=== PATIENT | male | born 1995 | race Caucasian/White ===

== ENCOUNTER 2016-05-25 17:59 | Emergency (ER) | payer MEDICAID, OTHER ==
[~2016-05-25] VITALS: Ht 175.3 cm; Wt 70.0 kg
[2016-05-25] MEDS ORDERED: KETOROLAC 60MG/2ML VIAL IM ONE (22:00)
[2016-05-25 22:38] LABS: BASOPHILS % 0.4 % (0.0-2.0); HEMATOCRIT. 41.3 % (42.0-52.0); HEMOGLOBIN. 14.2 g/dL (14.0-18.0); LYMPHOCYTES % 9.6 % (20.0-50.0); MEAN CORPUSCULAR HEMOGLOBIN 29.5 pg (28.0-32.0); MEAN CORPUSCULAR HGB CONC 34.3 g/dL (31.0-37.0); MEAN CORPUSCULAR VOLUME 86.2 fL (80.0-94.0); MEAN PLATELET VOLUME 7.4 fl (7.4-10.4); MONOCYTES % 11.6 % (2.0-8.0); NEUTROPHILS % 78.4 % (40.0-76.0); PLATELET 226 x1000/uL (130-400); WHITE BLOOD COUNT 16.2 x1000/uL (4.5-11.0)
[2016-05-25 22:44] LABS: CHLORIDE 102 mEq/L (98-107); INDEX HEMOLYSI 1 (1-3); INDEX ICTERIC 1 (1-4); INDEX LIPEMIC 1 (1-3)
[2016-05-25 22:47] LABS: ANION GAP 15; CALCIUM 8.6 mg/dL (8.5-10.1); CARBON DIOXIDE 24 mEq/L (21-32); UREA NITROGEN BLOOD 9 mg/dL (7-21)
[2016-05-25 22:50] LABS: eGFR > 60 mL/min (>60)
[2016-05-25 23:35] LABS: CLARITY URINE CLEAR (CLEAR); COLOR URINE YELLOW (YELLOW); GLUCOSE URINE NEGATIVE (NEGATIVE); KETONES URINE NEGATIVE (NEGATIVE); LEUKOCYTE ESTERASE URINE NEGATIVE (NEGATIVE); NITRITE URINE NEGATIVE (NEGATIVE); OCCULT BLOOD URINE TRACE (NEGATIVE); PH URINE 6.5 (4.5-8.0); PROTEIN URINE NEGATIVE (NEGATIVE); SPECIFIC GRAVITY URINE 1.012 (1.005-1.030)
[2016-05-25 23:38] LABS: BACTERIA URINE NONE SEEN; CALCIUM PHOSPHATE CRYSTALS UR NONE SEEN /lpf; SQUAMOUS EPITHELIAL CELL URINE NONE SEEN /lpf (RARE/1+); WAXY CASTS URINE NONE SEEN /lpf; WBC URINE NONE SEEN /hpf (0-2); YEAST URINE NONE SEEN
[2016-05-25] MEDS ORDERED: LIDOCAINE HCL 1% 20ML VIAL (Pyxis) INJ INFIL ONE (23:45)
[2016-05-25] MEDS ORDERED: AZITHROMYCIN 500 MG TABLET PO ONE (23:45)
[2016-05-25] MEDS ORDERED: CEFTRIAXONE SODIUM 250 MG/VIAL IM ONE (23:45)
[2016-05-26 01:30] VITALS: BP 120/68
== END 2016-05-26 02:46 | disposition home or self-care (01) ==
LOC: ER 20:46
DX: J02.9 Acute pharyngitis, unspecified (principal); N50.812 Left testicular pain; N50.811 Right testicular pain; J45.909 Unspecified asthma, uncomplicated; F17.200 Nicotine dependence, unspecified, uncomplicated
CPT/HCPCS: 36415; 76870; 80048; 81001; 85025; 87070; 87430; 93976; 96372; 99285; J0696; J1885; J3490; J7030; Z7610

== ENCOUNTER 2020-07-23 20:14 | Emergency (ER) | payer SELFPAY ==
[~2020-07-23] VITALS: Ht 175.3 cm; Wt 73.0 kg
[2020-07-23] MEDS ORDERED: HYDROCODONE/ACETAMINOPHEN 5/325MG TABLET PO STA (20:50)
[2020-07-23] MEDS ORDERED: AMOXICILLIN/POTASSIUM CLAVULANATE 875/125MG TAB PO ONE (21:00)
[2020-07-23] MEDS ORDERED: TETANUS, DIPHTHERIA, PERTUSSIS VAC/PF 0.5ML (>7YR OLD) IM ONE (21:00)
[2020-07-23] MEDS ORDERED: BACITRACIN ZINC OINT UDPKT TOP ONE (21:00)
[2020-07-23 21:26] VITALS: BP 129/78
[2020-07-23] MEDS ORDERED: AMOX-424 MT (22:13)
[2020-07-23] MEDS ORDERED: IBUP-2029 MT (22:14)
== END 2020-07-23 22:51 | disposition home or self-care (01) ==
LOC: ER 20:22
DX: S00.81XA Abrasion of other part of head, initial encounter (principal); R51.9 Headache, unspecified; W54.0XXA Bitten by dog, initial encounter; Y93.89 Activity, other specified; Y92.89 Other specified places as the place of occurrence of the external cause; Y99.8 Other external cause status; J45.909 Unspecified asthma, uncomplicated
CPT/HCPCS: 73562; 90471; 99284